=== PATIENT | female | born 1990 | race Caucasian/White ===

== ENCOUNTER 2019-03-03 18:38 | Inpatient (IN) ==
[~2019-03-03 18:38] MED LIST: CeFAZolin Premix DUPLEX 2,000 MG/50 ML BAG IVPB ONE; Famotidine 20 MG/2 ML VIAL IVP ONE; Metoclopramide 10 MG/2 ML VIAL IVP ONE; Oxytocin 20 units/ LR 1000 mL 20 UNIT/1,000 ML BAG IVC ONE; Oxytocin 20 units/ LR 1000 mL 20 UNIT/1,000 ML BAG IVC SCH; Ringers Solution, Lactated 1,000 ML IVC ONE; Ringers Solution, Lactated 1,000 ML IVC SCH
[2019-03-03] MEDS ORDERED: CeFAZolin Premix DUPLEX 2,000 MG/50 ML BAG IVPB ONE (19:19)
[2019-03-03] MEDS ORDERED: Metoclopramide 10 MG/2 ML VIAL IVP ONE (19:19)
[2019-03-03] MEDS ORDERED: Famotidine 20 MG/2 ML VIAL IVP ONE (19:19)
[2019-03-03] MEDS ORDERED: Ringers Solution, Lactated 1,000 ML IVC SCH (19:30)
[2019-03-03] MEDS ORDERED: Azithromycin 500 MG in 0.9 % Sodium Chloride 250 ML IVPB ONE (20:04)
[2019-03-03 20:33] LABS: Basophils % 0.3 %; Eosinophils # 0.2 K/mcL (0.0-0.6); Hematocrit 31.3 % (35.3-44.9); Hemoglobin 10.1 g/dL (11.5-15.4); Immature Granulocytes % 0.7 % (0-4); Lymphocytes # 2.8 K/mcL (0.6-4.6); Lymphocytes % 23.4 %; Mean Corpuscular HGB Conc 32.3 g/dL (31.6-35.5); Mean Corpuscular Hemoglobin 27.8 pg (28.0-33.3); Mean Corpuscular Volume 86.2 fL (83.0-100.0); Mean Platelet Volume 10.2 fL (9.4-12.4); Monocytes # 0.8 K/mcL (0.0-1.3); Monocytes % 6.5 %; Platelet Count 390 K/mcL (140-400); Red Blood Count 3.63 M/mcL (3.82-4.97); Red Cell Distribution Width 12.1 % (11.5-14.5); Segmented Neutrophils % 67.1 %; White Blood Count 11.9 K/mcL (4.3-11.1)
[2019-03-03] MEDS ORDERED: *HR* Morphine Sulfate/PF 10 MG/10 ML AMPUL ONE (21:00)
[2019-03-03] MEDS ORDERED: *HR* FentaNYL (PF) 100 MCG/2 ML VIAL ONE (21:01)
[2019-03-03] MEDS ORDERED: *HR* Phenylephrine 10 MG/ML VIAL ONE (21:02)
[2019-03-03] MEDS ORDERED: EPHEDrine 50 MG/ML VIAL ONE (21:04)
[2019-03-03 21:41] LABS: Amphetamine Screen,Urine Negative ng/mL (Cutoff=1000); Barbiturate Screen,Urine Negative ng/mL (Cutoff=200); Benzodiazepines Screen,Urine Negative ng/mL (Cutoff=200); Cannabinoid Screen,Urine Negative ng/mL (Cutoff = 50); Cocaine Screen,Urine Negative ng/mL (Cutoff= 300); Opiate Screen,Urine Negative ng/mL (Cutoff=300); Phencyclidine Screen,Urine Negative ng/mL (Cutoff=25)
[2019-03-03] MEDS ORDERED: Ringers Solution, Lactated 1,000 ML ONE (21:44)
[2019-03-03] MEDS ORDERED: *HR* Oxytocin 10 UNIT/ML VIAL IM ONE (21:44)
[2019-03-03] MEDS ORDERED: Ondansetron 4 MG/2 ML VIAL IVP PRN (21:54)
[2019-03-03] MEDS ORDERED: *HR* HYDROmorphone (PF) 1 MG/ML SYRINGE IVP PRN (21:54)
[2019-03-03] MEDS ORDERED: Dexamethasone 4 MG/ML VIAL ONE (22:14)
[2019-03-03] MEDS ORDERED: Ondansetron 4 MG/2 ML VIAL ONE (22:14)
[2019-03-04] MEDS ORDERED: Acetaminophen IV 1,000 MG/100 ML INFUS..BTL IVPB SCH ×4 (01:23→18:00)
[2019-03-04] MEDS ORDERED: Oxytocin 20 units/ LR 1000 mL 20 UNIT/1,000 ML BAG IVC SCH (01:23)
[2019-03-04] MEDS ORDERED: Ketorolac 30 MG/ML VIAL IM SCH ×2 (01:23→11:00)
[2019-03-04] MEDS ORDERED: Ondansetron 4 MG/2 ML VIAL IVP PRN (01:23)
[2019-03-04] MEDS ORDERED: Sennosides 8.6 MG TABLET PO PRN (01:23)
[2019-03-04] MEDS ORDERED: Metoclopramide 10 MG/2 ML VIAL IVP PRN (01:23)
[2019-03-04] MEDS ORDERED: Simethicone 80 MG TAB.CHEW PO PRN (01:23)
[2019-03-04] MEDS: Oxytocin 20 units/ LR 1000 mL 20 UNIT/1,000 ML BAG IVC SCH ×2 (01:30→08:03)
[2019-03-04] MEDS: Ringers Solution, Lactated 1,000 ML IVC SCH ×2 (01:30→18:36)
[2019-03-04 06:42] LABS: Basophils % 0.2 %; Eosinophils % 0.1 %; Hemoglobin 9.6 g/dL (11.5-15.4); Immature Granulocytes % 0.9 % (0-4); Lymphocytes # 1.6 K/mcL (0.6-4.6); Mean Corpuscular Hemoglobin 27.8 pg (28.0-33.3); Mean Platelet Volume 10.1 fL (9.4-12.4); Monocytes # 0.8 K/mcL (0.0-1.3); Monocytes % 3.9 %; Platelet Count 370 K/mcL (140-400); Red Blood Count 3.45 M/mcL (3.82-4.97); Red Cell Distribution Width 11.9 % (11.5-14.5); Segmented Neutrophils % 86.9 %; White Blood Count 19.5 K/mcL (4.3-11.1)
[2019-03-04] MEDS: *HR* Buprenorphine HCl 8 MG TAB.SUBL SL SCH (08:05)
[2019-03-04] MEDS: Prenatal Vit/FA 1 EACH TABLET PO SCH (08:20)
[2019-03-04] MEDS: Ketorolac 30 MG/ML VIAL IVP SCH ×2 (14:14→20:07)
[2019-03-04] MEDS: *HR* OxyCODONE Immed Rel 5 MG TABLET PO PRN (20:06)
[2019-03-05] MEDS: *HR* OxyCODONE Immed Rel 5 MG TABLET PO PRN (00:28)
[2019-03-05] MEDS: Ibuprofen 600 MG TABLET PO PRN ×3 (03:27→22:05)
[2019-03-05] MEDS: Prenatal Vit/FA 1 EACH TABLET PO SCH (08:05)
[2019-03-05] MEDS: *HR* Buprenorphine HCl 8 MG TAB.SUBL SL SCH ×2 (08:05→22:06)
[2019-03-06] MEDS: *HR* Buprenorphine HCl 8 MG TAB.SUBL SL SCH (08:03)
[2019-03-06] MEDS: Prenatal Vit/FA 1 EACH TABLET PO SCH (08:04)
[2019-03-06] MEDS: Ibuprofen 600 MG TABLET PO PRN (08:04)
[2019-03-06 08:09] VITALS: BP 112/71
== END 2019-03-06 17:38 | disposition home or self-care (01) | DRG 539 ==
LOC: 1NENULAB → 1NENUOBS 03-04 01:22
PROVIDERS: ADMIT Advanced Practice Midwife; ATTEND Advanced Practice Midwife